=== PATIENT | male | born 1980 | race African-American/Black ===

== ENCOUNTER 2018-08-31 22:06 | Emergency (ER) | payer MEDICAID ==
[~2018-08-31] VITALS: Ht 185.4 cm; Wt 131.1 kg
--- NOTE | 2018-08-31 22:36 | NUR ---
PT A/OX4, ABLE TO FOLLOW COMMANDS. PT C/O GENERALIZED WEAKNESS, HEADACHE X 1 DAY, AND COUGH. NO FACIAL DROOP NOTED, SPEAKING COHERENTLY, NO ONE-SIDED WEAKNESS. NO COUGH NOTED IN THE ER. PT DENIES PAIN, C/P, SOB, N/V/D, DIZZINESS, HEADACHE.
--- NOTE | 2018-08-31 22:38 | NUR ---
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
--- NOTE | 2018-08-31 22:40 | NUR ---
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
[2018-08-31 22:45] LABS: BASOPHILS # (AUTO) 0.1 K/uL (0.0-8.0); BASOPHILS % (AUTO) 0.7 % (0.0-2.0); EOSINOPHILS # (AUTO) 0.1 K/uL (0.0-0.7); EOSINOPHILS % (AUTO) 0.7 % (0.0-7.0); HEMATOCRIT 38.7 % (36.7-47.1); HEMOGLOBIN 12.7 g/dL (12.5-16.3); LYMPHOCYTES # (AUTO) 2.7 K/uL (20.0-40.0); LYMPHOCYTES % (AUTO) 18.7 % (20.5-51.5); MEAN CORPUSCULAR HEMOGLOBIN 26.1 uug (23.8-33.4); MEAN CORPUSCULAR HGB CONC 33 g/dL (32.5-36.3); MEAN CORPUSCULAR VOLUME 79.7 fL (73.0-96.2); MONOCYTES # (AUTO) 1.1 K/uL (2.0-10.0); MONOCYTES % (AUTO) 7.4 % (0.0-11.0); NEUTROPHILS # (AUTO) 10.5 K/uL (1.8-8.9); NEUTROPHILS % (AUTO) 72.5 % (38.5-71.5); PLATELET COUNT (AUTO) 280 K/uL (152-348); RED BLOOD CELL COUNT(AUTO) 4.85 MIL/uL (4.06-5.63); WHITE BLOOD COUNT (AUTO) 14.4 K/uL (3.6-10.2)
[2018-08-31 23:02] LABS: CREATININE 1.4 mg/dL (0.6-1.3); POTASSIUM 3.4 mmol/L (3.5-5.1)
--- NOTE | 2018-08-31 23:17 | NUR ---
NEERU LYNN AT BEDSIDE FOR PT UPDATE.
--- NOTE | 2018-08-31 23:20 | NUR ---
Patient discharged to home in stable conditon. Written and verbal after care instructions given. Patient verbalizes understanding of instructions. PT D/C W/ PRESCRIPTION. ALL BELONGINGS W/ PT. PT SELF-AMBULATED W/O DIFFICULTY.
[2018-08-31 23:22] VITALS: BP 146/78
== END 2018-08-31 23:22 | disposition home or self-care (01) ==
LOC: ER 22:06
DX: J06.9 Acute upper respiratory infection, unspecified (principal); R53.1 Weakness
CPT/HCPCS: 36415; 71045; 85025; A4663

== ENCOUNTER 2019-09-10 16:03 | Emergency (ER) | payer MEDICAID, OTHER ==
[~2019-09-10] VITALS: Ht 185.4 cm; Wt 131.5 kg
--- NOTE | 2019-09-10 16:17 | NUR ---
PATIENT WAS MSE BY DR HERNANDEZ IN ROOM 02A. PATIENT A & O X4 .
[2019-09-10 16:40] VITALS: BP 128/77
--- NOTE | 2019-09-10 16:40 | NUR ---
DR HERNANDEZ AT BEDSIDE MADE PATIENT AWARE OF TEST RESULT. WILL BE DC HOME.
--- NOTE | 2019-09-10 16:41 | NUR ---
Patient discharged to home in stable conditon. Written and verbal after care instructions given. Patient verbalizes understanding of instructions.
== END 2019-09-10 16:42 | disposition home or self-care (01) ==
LOC: ER 16:09
DX: J45.909 Unspecified asthma, uncomplicated (principal)
CPT/HCPCS: 71045; A4663